=== PATIENT | female | born 1955 | race Asian ===

== ENCOUNTER 2019-01-31 09:12 | Outpatient (CLI) | payer OTHER ==
--- NOTE | 2019-02-18 14:48 | Mammography Report ---
Reason: SCREENING MAMMO Procedure Date: 01/31/2019 Accession Number: [id number] / [id number] Procedure: ALBERTO - Screening Mammo Dig Bilat CPT Code: Final Report FULL RESULT: EXAM: Screening Mammo Dig Bilat DATE: 01/31/2019 10:09 AM CLINICAL HISTORY: Screening encounter. History of nulliparity. TECHNIQUE: (B) - Bilateral CC and MLO views were obtained. COMPARISON: None PARENCHYMAL PATTERN: (A) - The breast(s) demonstrate(s) scattered fibroglandular densities. FINDINGS: There are coarse typically benign calcifications. There are no suspicious masses, calcifications, or areas of distortion. IMPRESSION: Benign findings. BI-RADS category 2. RECOMMENDATION: (ANNUAL) - Recommend routine annual screening mammography. BI-RADS CATEGORY: (2) - Benign Findings. STANDARD QUALIFYING STATEMENTS: 1. This examination was not reviewed with the aid of Computer-Aided Detection (CAD). 2. A negative or benign imaging report should not preclude biopsy if clinically suspicious findings are present. 3. Dense breasts may obscure an underlying neoplasm. 4. This examination was reviewed without the aid of 3D breast imaging (tomosynthesis).
== END 2019-01-31 09:13 | disposition home or self-care (01) ==
LOC: DI 09:12
DX: Z12.31 Encounter for screening mammogram for malignant neoplasm of breast (principal)
CPT/HCPCS: 77067

== ENCOUNTER 2020-06-10 08:49 | Outpatient (CLI) | payer MEDICARE, OTHER ==
--- NOTE | 2020-06-16 12:12 | Mammography Report ---
BILATERAL DIGITAL SCREENING MAMMOGRAM 3D/2D: 06/10/2020 CLINICAL: Routine screening. Comparison is made to exam dated: 01/31/2019 mammogram - [facility]. There are sc attered fibroglandular elements in both breasts. No significant masses, calcifications, or other findings are seen in either breast. There has been no significant interval change. IMPRESSION: NEGATIVE There is no mammographic evidence of malignancy. A 1 year screening mammogram is recommended. This exam was interpreted at Station ID: [id number]. NOTE: For mammograms, a report in lay terms will be sent to the patient. Approximately 15% of breast malignancies will not be visualized mammographically. In the management of a palpable breast mass, a negative mammogram must not discourage biopsy of a clinically suspicious lesion. Electronically Signed By: Dean Valladares M.D. [facility]:06/15/2020 16:36:01 ACR BI-RADS Category 1: Negative 3341F PARENCHYMAL PATTERN: (A) - The breast(s) demonstrate(s) scattered fibroglandular densities. BI-RADS CATEGORY: (1) - 1 RECOMMENDATION: (ANNUAL) - Recommend routine annual screening mammography. [id number] 1 year screening LATERALITY: (B)
== END 2020-06-10 08:50 | disposition home or self-care (01) ==
LOC: DI 08:49
PROVIDERS: ATTEND Physician Assistant
DX: Z12.31 Encounter for screening mammogram for malignant neoplasm of breast (principal)

== ENCOUNTER 2021-09-03 07:55 | Outpatient (CLI) | payer MEDICARE, OTHER ==
--- NOTE | 2021-09-06 10:22 | Mammography Report ---
BILATERAL DIGITAL SCREENING MAMMOGRAM 3D/2D: 09/03/2021 CLINICAL: Routine screening. Comparison is made to exams dated: 06/10/2020 mammogram and 01/31/2019 mammogram - [facility]. There are scattered fibroglandular elements in both breasts. No significant masses, calcifications, or other findings are seen in either breast. There has been no significant interval change. IMPRESSION: NEGATIVE There is no mammographic evidence of malignancy. A 1 year screening mammogram is recommended. Based on the Tyrer Cuzick model (a risk assessment model) the patients lifetime risk is 5.7% and her 10 year risk is 2.8%. According to the ACR, ACS, and NCCN guidelines, an annual breast MRI exam mily g with mammogram is recommended if the patients lifetime risk is 20% or greater. This exam was interpreted at Station ID: [id number]. NOTE: For mammograms, a report in lay terms will be sent to the patient. Approximately 15% of breast malignancies will not be visualized mammographically. In the management of a palpable breast mass, a negative mammogram must not discourage biopsy of a clinically suspicious lesion. Electronically Signed By: Edyta valdes/anel:09/03/2021 15:01:09 ACR BI-RADS Category 1: Negative 3341F PARENCHYMAL PATTERN: (A) - The breast(s) demonstrate(s) scattered fibroglandular densities. BI-RADS CATEGORY: (1) - 1 RECOMMENDATION: (ANNUAL) - Recommend routine annual screening mammography. [id number] 1 year screening LATERALITY: (B)
== END 2021-09-03 07:56 | disposition home or self-care (01) ==
LOC: DI 07:55
PROVIDERS: ATTEND Physician Assistant
DX: Z12.31 Encounter for screening mammogram for malignant neoplasm of breast (principal)

== ENCOUNTER 2022-04-02 11:14 | Emergency (ER) | payer MEDICARE, OTHER ==
[2022-04-02 11:21] VITALS: BP 170/83
[2022-04-02] MEDS ORDERED: PSEUDOEPHEDRINE 30 MG TABLET PO STA (11:38)
--- NOTE | 2022-04-02 11:41 | ED Physician Documentation ---
PD LAMB HEENT - Stated complaint Stated Complaint: CEBALLOS/EAR PRESSURE - Chief complaint Chief Complaint: Heent - History obtained from History obtained from: Patient - Additional information Additional information: Patient is a 66-year-old female presenting for evaluation of fullness in bilateral ears that is been present for 10 days. She reports having some nasal congestion but denies drainage. She has had no fever, cough, chest pain or difficulty breathing. She saw her PCP for this 1 week ago and was told that she has fluid behind her ears and was instructed to use Benadryl. She does have a history of allergies and has been taking Zyrtec as well as Flonase without improvement.She did note feeling a little better yesterday when she took ibuprofen. Review of Systems Constitutional: denies: Fever Ears: reports: Ear pain Nose: reports: Congestion Cardiac: denies: Chest pain / pressure Respiratory: denies: Dyspnea, Cough GI: denies: Abdominal Pain Musculoskeletal: denies: Back pain Neurologic: denies: Headache PD PAST MEDICAL HISTORY - Past Medical History Past Medical History: Yes Cardiovascular: High cholesterol Respiratory: Asthma Neuro: None Endocrine/Autoimmune: HyPOthyroidism - Present Medications Home Medications: Ambulatory Orders Medication Instructions Recorded Confirmed Albuterol Sulf [Ventolin Hfa 1 - 2 puffs INH Q4HR PRN 04/02/22 04/02/22 Inhaler] Cetirizine [ZyrTEC] 10 mg PO DAILY 04/02/22 04/02/22 Fluticasone/Salmeterol [Advair 1 puffs IH DAILY 04/02/22 04/02/22 500-50 Diskus] Latanoprost 0.005% Ophth Drops 1 drops OP DAILY 04/02/22 04/02/22 [Xalatan Ophth Drops] Levothyroxine Sodium [Synthroid] 75 mcg PO DAILY 04/02/22 04/02/22 Pseudoephedrine HCl [Sudafed] 30 mg PO Q8HR PRN #12 tablet 04/02/22 Simvastatin [Zocor] 10 mg ORAL HS 04/02/22 04/02/22 - Allergies Allergies/Adverse Reactions: Allergies Allergy/AdvReac Type Severity Reaction Status Date / Time codeine Allergy Rash Verified 04/02/22 11:21 Penicillins Allergy Rash Verified 04/02/22 11:21 - Social History Does the pt smoke?: No Smoking Status: Never smoker Does the pt drink ETOH?: No Does the pt have substance abuse?: No - Immunizations Immunizations are current?: Yes PD ED PE NORMAL - General General: Alert and oriented X 3, No acute distress, Well developed/nourished - HEENT HEENT: Atraumatic, Moist mucous membranes, Pharynx benign, Other (No tenderness over bilateral frontal or maxillary sinuses, no redness or fullness; Bilateral serous otitis media With intact TMs, No cerumen in ear canals) - Neck Neck: Supple, no meningeal sign - Cardiac Cardiac: RRR - Respiratory Respiratory: No respiratory distress, Clear bilaterally - Derm Derm: Warm and dry - Neuro Neuro: Normal speech Results - Vitals Vitals: Vital Signs - 24 hr 04/02/22 11:17 Temperature 36.6 C Heart Rate 89 Respiratory 16 Rate Blood Pressure 170/83 H O2 Saturation 98 PD Medical Decision Making - ED course ED course: Patient with bilateral ear fullness for the past 10 days. Her vital signs are stable. Blood pressure slightly elevated but otherwise does not have symptoms to suggest hypertensive urgency/Emergency. No tenderness noted over bilateral frontal or maxillary sinuses to suggest sinusitis.She does have evidence of serous otitis media bilaterally. At this time I do not feel antibiotics are indicated. Discussed continued supportive care with trial of decongestants. I did advise on need for close follow-up with PCP if symptoms are not improving. Patient counseled on concerning symptoms to return for. Departure - Departure Disposition: 01 Home, Self Care Clinical Impression: Acute serous otitis media of both ears Qualifiers: Recurrence: non-recurrent Qualified Code(s): H65.03 - Acute serous otitis media, bilateral Condition: Stable Instructions: ED Otitis Media Serous Adult Prescriptions: Pseudoephedrine HCl [Sudafed] 30 mg PO Q8HR PRN #12 tablet PRN Reason: Cold Symptons Comments: You have fluid behind both eardrums but it does not appear to be infected at this time. This fluid can build up as the result of viral infections. Antibiotics will not be helpful at this time. I would recommend continued treatment with anti-inflammatories, a decongestant such as Sudafed, and close follow-up with your primary care doctor. I have sent a prescription for Sudafed to [facility] in [place]. Although your blood pressure is usually fine it was elevated today.Please use caution when using Sudafed as it can also cause your blood pressure to become higher. Discharge Date/Time: 04/02/22 11:47
== END 2022-04-02 11:47 | disposition home or self-care (01) ==
LOC: ED 11:14
DX: H65.03 Acute serous otitis media, bilateral (principal); R03.0 Elevated blood-pressure reading, without diagnosis of hypertension
CPT/HCPCS: 99282; 99283; A9270

== ENCOUNTER 2022-07-13 08:57 | Day surgery (SDC) | payer MEDICARE, OTHER ==
[2022-07-13] MEDS ORDERED: LACTATED RINGERS 1,000 ML IV ONE (09:18)
--- NOTE | 2022-07-13 11:36 | ANESTHESIA ---
Pre-Anesthesia VS, & Labs - Diagnosis positive cologuard - Procedure colonoscopy Vital Signs: Temp Pulse Resp BP Pulse Ox O2 Flow Rate 36.5 C 65 16 146/85 H 96 0 07/13/22 09:18 07/13/22 09:18 07/13/22 09:18 07/13/22 09:18 07/13/22 09:18 07/13/22 09:18 Height: 5 ft 2 in Weight (kg): 67.1 kg Body Mass Index: 27.0 BMI Classification: Overweight - NPO Other (prep as directed) - Is Patient ?: No Home Medications and Allergies Albuterol Sulf [Ventolin Hfa Inhaler] 1 - 2 puffs INH Q4HR PRN 04/02/22 Cetirizine [ZyrTEC] 10 mg PO DAILY 04/02/22 Fluticasone/Salmeterol [Advair 500-50 Diskus] 1 puffs IH DAILY 04/02/22 Latanoprost 0.005% Ophth Drops [Xalatan Ophth Drops] 1 drops OP DAILY 04/02/22 Levothyroxine Sodium [Synthroid] 75 mcg PO DAILY 04/02/22 Simvastatin [Zocor] 10 mg ORAL HS 04/02/22 Allergies/Adverse Reactions: Allergies Allergy/AdvReac Type Severity Reaction Status Date / Time codeine Allergy Rash Verified 07/12/22 13:14 Penicillins Allergy Rash Verified 07/12/22 13:14 Anes History & Medical History - Anesthetic History Anesthesia Complications: reports: No previous complications - Medical History Cardiovascular: reports: High cholesterol Pulmonary: reports: Asthma Neuro: reports: None Endocrine/Autoimmune: reports: HyPOthyroidism Smoking Status: Never smoker Psychosocial: reports: Alcohol (occasional) - Surgical History General: reports: Colonoscopy Exam General: Alert, Oriented x3 Dental: Dentures full Upper, Poor dentition Mouth Opening: Greater than 4 Fingerbreadths Neck Mobility: Normal Mallampati classification: II Thyromental Distance: greater than 6 cm Respiratory: Lungs clear Cardiovascular: Regular rate, Normal S1, Normal S2 Plan Anesthesia Type: Total IV Consent for Procedure(s) Verified and Reviewed: Yes Code Status: Attempt Resuscitation ASA classification: 2-Mild systemic disease Is this case an emergency?: No
[2022-07-13] MEDS ORDERED: PROPOFOL 500 MG/50 ML 500 MG/50 ML VIAL ONE (11:38)
[2022-07-13] MEDS ORDERED: LACTATED RINGERS 300 ML IV ONE (12:35)
[2022-07-13 12:52] VITALS: BP 111/70
== END 2022-07-13 08:58 | disposition home or self-care (01) ==
LOC: SDS 08:57
PROVIDERS: ATTEND Surgery
PROC: 0DBL8ZZ Excision of Transverse Colon, Via Natural or Artificial Opening Endoscopic (ICD-10-PCS; 2022-07-13)
PROC: 0DBP8ZZ Excision of Rectum, Via Natural or Artificial Opening Endoscopic (ICD-10-PCS; principal; 2022-07-13 10:00)
DX: Z12.11 Encounter for screening for malignant neoplasm of colon (principal); R19.5 Other fecal abnormalities; D12.3 Benign neoplasm of transverse colon; K62.1 Rectal polyp; K64.1 Second degree hemorrhoids; J45.909 Unspecified asthma, uncomplicated
CPT/HCPCS: 45380; J7120

== ENCOUNTER 2023-09-07 09:15 | Outpatient (CLI) | payer MEDICARE, OTHER ==
--- NOTE | 2023-09-07 11:47 | DEXA Report ---
PROCEDURE: Dexa Spine and/or Hip INDICATIONS: POST MENOPAUSAL TECHNIQUE: Dual energy x-ray absorptiometry (DXA) was performed on a [employer] System. Regions measur ed are the AP Spine, femoral neck, and if needed forearm. COMPARISON: DEXA on September 08, 2021 FINDINGS: Lumbar Spine: Bone Mineral Density: 1.031 g/cm/cm,T score: -1.2. Since the most recent prior study, there has been a statistically significant increase in bone mineral density by 7.8 percent. Left Femoral Neck: Bone Mineral Density: 0.828 g/cm/cm, T score: -1.5. Left Hip: Bone Mineral Density: 0.944 g/cm/cm,T score: -0.5. There has been no statistically significant change in bone mineral density since the prior study. FRAX risk factors: None given. 10 year risk of major osteoporotic fracture: 5.3% major osteoporotic fracture = hip, clinical vertebral, proximal humerus, distal forearm 10 year risk of hip fracture: 0.7% (T score greater or equal to -1.0: NORMAL) (T score from -1.1 to -2.4: OSTEOPENIA) (T score less than or equal to -2.5 to: OSTEOPOROSIS) Impression: By WHO criteria, this patient has low bone density (osteopenia). Interval statistical increase in bone mineral density of the lumbar spine. No statistical interval ch addie in bone mineral density of the hip. Patients with diagnosis of osteoporosis or osteopenia should have regular bone mineral density assess ment. For those eligible for Medicare, routine testing is allowed once every 2 years. Testing frequ ency can be increased for patients who have rapidly progressing disease or for those who are receivin g medical therapy to restore bone mass. Reviewed by: Iwona Adams MD on 09/07/2023 11:46 AM PDT Approved by: Iwona Adams MD on 09/07/2023 11:46 AM PDT Station ID: [id number]
== END 2023-09-07 09:16 | disposition home or self-care (01) ==
LOC: DI 09:15
PROVIDERS: ATTEND Registered Nurse
DX: M85.89 Other specified disorders of bone density and structure, multiple sites (principal); Z78.0 Asymptomatic menopausal state

== ENCOUNTER 2023-09-07 09:17 | Outpatient (CLI) | payer MEDICARE, OTHER ==
--- NOTE | 2023-09-08 09:40 | Mammography Report ---
BILATERAL DIGITAL SCREENING MAMMOGRAM 3D/2D: 09/07/2023 CLINICAL: Routine screening. Comparison is made to exams dated: 09/03/2021 mammogram, 06/10/2020 mammogram, and 01/31/2019 mammogram - [facility]. There are scattered areas of fibroglandular density in both breasts (category b / 25%-50% glandular t issue). No significant masses, calcifications, or other findings are seen in either breast. There has been no significant interval change. IMPRESSION: NEGATIVE There is no mammographic evidence of malignancy. A 1 year screening mammogram is recommended. Based on the Tyrer Cuzick model (a risk assessment model) the patient's lifetime risk is 5.1% and her 10 year risk is 2.8%. According to the ACR, ACS, and NCCN guidelines, an annual breast MRI exam mily g with mammogram is recommended if the patient's lifetime risk is 20% or greater. This exam was interpreted at Station ID: [id number]. NOTE: For mammograms, a report in lay terms will be sent to the patient. Approximately 15% of breast malignancies will not be visualized mammographically. In the management of a palpable breast mass, a negative mammogram must not discourage biopsy of a clinically suspicious lesion. Electronically Signed By: Edyta valdes/anel:09/07/2023 17:11:58 letter sent: No_Letter ACR BI-RADS Category 1: Negative 3341F PARENCHYMAL PATTERN: (A) - The breast(s) demonstrate(s) scattered fibroglandular densities. BI-RADS CATEGORY: (1) - 1 RECOMMENDATION: (ANNUAL) - Recommend routine annual screening mammography. [id number] 1 year screening LATERALITY: (B)
== END 2023-09-07 09:18 | disposition home or self-care (01) ==
LOC: DI 09:17
PROVIDERS: ATTEND Registered Nurse
DX: Z12.31 Encounter for screening mammogram for malignant neoplasm of breast (principal); R92.323 Mammographic fibroglandular density, bilateral breasts